=== PATIENT | female | born 1995 | race Asian ===

== ENCOUNTER 2021-11-30 06:49 | Emergency (ER) | payer OTHER | END 2021-11-30 07:05 | disposition home or self-care (01) | LOC: CSHERS 06:49 | DX: S80.12XA Contusion of left lower leg, initial encounter (principal); S00.83XA Contusion of other part of head, initial encounter; R07.89 Other chest pain; V89.2XXA Person injured in unspecified motor-vehicle accident, traffic, initial encounter | CPT/HCPCS: 99283 ==